=== PATIENT | female | born 1990 | race Asian ===

== ENCOUNTER 2020-01-22 14:22 | Emergency (ER) | payer OTHER ==
--- OUTSIDE RECORDS SUMMARY | 2020-01-22 14:27 | XMS REPORT | Summary of Care ---
:1990 Author Organization [facility] Address [address] [place] [address] Care Team Providers Name Role Phone Pcp, Patient Does Not Have A Primary Care Provider +1-000-00 0-0000 Reason for Visit Reason Comments Initial Visit Encounter Details Date Type Department Care Team Description 05/10/2019 Initial [facility] Precious Hernandez am, MD Supervision of high-risk with history of in first trimester (Primary Dx); Visit Healthcare- [address] [place] [address] ses; Óscar ALEMAN examination or test, positive result; [address] [place] [address], [address] Unsure of LMP (last menstrual period) as reason for ultrasound scan; [address] [place], [place] [phone] Allergies Active Allergy Reactions Severity Noted Date Comments Nsaids (Non-Steroidal Anti-Inflammatory Drug) Swelling 05/10/2019 documented as of this encounter (statuses as of 05/11/2019) Medications Medication Sig Dispensed Refills Start Date End Date Status vit Take by mouth. 0 A ctive calc,iron,folic ( VITAMIN ORAL) PNV [id number] Take 1 30 capsule 8 05/11/2019 Active 1-dss-dha (VITAFOL FE+, TAB-CAP/M2 by WITH DOCUSATE,) 90 mg mouth daily. iron-1 mg -50 mg-200 mg CapIndications: Supervision of high-risk with history of in first trimester documented as of this encounter (statuses as of 05/11/2019) Active Problems Estimated Date of Delivery Comments Yes 12/12/2019 Based on Ultrasound No additional problems on filedocumented as of this encounter (statuses as of 05/11/2019) Social History Tobacco Use Types Packs/Day Years Used Date Never Smoker Smokeless Tobacco: Never Used Alcohol Use Drinks/Week oz/Week Comments Not Currently Estimated Date of Delivery Comments Yes 12/12/2019 Based on Ultrasound Sex Assigned at Date Recorded Not on file Job Start Date Occupation Industry Not on file Not on file Not on file Travel History Travel Start Travel End No recent travel history available. documented as of this encounter Last Filed Vital Signs Vital Sign Reading Time Taken Comments Blood Pressure 115/77 05/10/2019 11:32 AM CDT Pulse 86 05/10/2019 11:32 AM CDT Temperature 36.7 C (98.1 F) 05/10/2019 11:32 AM CDT Respiratory Rate 18 05/10/2019 11:32 AM CDT Oxygen Saturation - - Inhaled Oxygen Concentration - - Weight 57.6 kg (127 lb) 05/10/2019 11:32 AM CDT Height 162.6 cm (5' 4") 05/10/2019 11:32 AM CDT Body Mass Index 21.8 05/10/2019 11:32 AM CDT documented in this encounter Progress Notes Precious Hernandez MD - 05/10/2019 11:00 AM CDT Chief complaint: Chief Complaint Patient presents with Initial Visit HPI Tequila Friedman is a 29 year old female @ 11 5/7 weeks by Patient's last menstrual period was 02/17/2019 (exact date). However, patient has irregular periods and have been skipping a month intermittently. Also had done intermittent fasting and vigorous exercises in March 2019 for weight loss andhad lost 14 lbs. She discontinued that when she found out she is . Denies vaginal bleedingor cramping. Is taking PNV. Never had a pap smear. Histories OB History Para Term AB Living 2 1 SAB TAB Ectopic Multiple Live Births 1 # Outcome Date GA Lbr Tony/2nd Weight Sex Delivery Anes PTL Lv 2 Current 1 TAB 2005 Past Medical History: Diagnosis Date Gout Family History Problem Relation Age of Onset No Significant Medical Problems Mother COPD (chronic obstructive pulmonary disease) Father Hypertension Father Hypertension Maternal Grandmother Hypertension Paternal Grandfather Arthritis NoFHx Asthma NoFHx defects NoFHx Breast Cancer NoFHx Colon Cancer NoFHx Ovarian Cancer NoFHx Uterine Cancer NoFHx Cancer NoFHx Depression NoFHx Diabetes NoFHx Genetic NoFHx High cholesterol NoFHx Heart NoFHx Neurological NoFHx Mental retardation NoFHx Osteoporosis NoFHx Psychiatry NoFHx Other - see comments NoFHx Family Status Relation Name Status Mo Alive Fa Alive MGMo (Not Specified) PGFa (Not Specified) NoFHx (Not Specified) History reviewed. No pertinent surgical history. Social History Socioeconomic History Marital status: Spouse name: Not on file Number of children: Not on file Years of education: Not on file Highest education level: Not on file Occupational History Not on file Social Needs Financial resource strain: Not on file Food insecurity: Worry: Not on file Inability: Not on file Transportation needs: Medical: Not on file Non-medical: Not on file Tobacco Use Smoking status: Never Smoker Smokeless tobacco: Never Used Substance and Sexual Activity Alcohol use: Not Currently Drug use: Never Sexual activity: Yes Partners: Male Lifestyle Physical activity: Days per week: Not on file Minutes per session: Not on file Stress: Not on file Relationships Social connections: Talks on phone: Not on file Gets together: Not on file Attends temple service: Not on file Active member of club or organization: Not on file Attends meetings of clubs or organizations: Not on file Relationship status: Not on file Intimate partner violence: Fear of current or ex partner: Not on file Emotionally abused: Not on file Physically abused: Not on file Forced sexual activity: Not on file Other Topics Concern Not on file Social History Narrative Pt denies physical and sexual abuse. Social History Substance and Sexual Activity Sexual Activity Yes Partners: Male Genetic Screen Autism / Mental Retardation: No Baron Disease: No Congenital Heart Defect: No Cystic Fibrosis: No Down Syndrome: (!) Yes(nephew) Familial Dysautonomia: No Hemophilia or other Blood Disorders: No [place] Chorea: No Maternal Metabolic Disorder--specify (eg. Type 1 Diabetes, PKU): No Muscular Dystrophy: No Neural Tube Defect: No Recurrent Loss or a Stillbirth: No Sickle Cell Disease or Trait: No Bhavesh Sachs: No Teratological Substances (specify type & strength/dose) since LMP: No Thalassemia: No Other Inherited Genetic or Chromosomal Disorder (specify): No Labs No new labs Radiology No new radiology. Allergies Tequila is allergic to nsaids (non-steroidal anti-inflammatory drug). Medications Tequila has a current medication list which includes the following prescription(s): vit calc,iron,folic. Review of Systems Constitutional: Negative for chills, fatigue and fever. HENT: Negative for congestion, rhinorrhea, sneezing and sore throat. Respiratory: Negative for cough, chest tightness, shortness of breath and wheezing. Breasts: Negative for discharge, mass, pain and unequal size. Cardiovascular: Negative for chest pain and palpitations. Gastrointestinal: Negative for abdominal distention, abdominal pain, anal bleeding, blood in stool, constipation, diarrhea, nausea and vomiting. Genitourinary: Negative for dysuria, urgency, frequency, vaginal bleeding and vaginal discharge. Musculoskeletal: Negative for gait problem. Skin: Negative for rash. Neurological: Negative for syncope, light-headedness and headaches. Psychiatric/Behavioral: Negative for dysphoric mood, self-injury and suicidal ideas. Hematological: Negative for cold intolerance and heat intolerance. Does not bruise/bleed easily. Endocrine: Negative for cold intolerance and heat intolerance. BP 115/77 (BP Location: Left arm, Patient Position: Sitting, BP CUFF SIZE: Adult Medium) | Pulse 86 | Temp 36.7 C (98.1 F) (Oral) | Resp 18 | Ht 5' 4" (1.626 m) | Wt 127 lb (57.6 kg) | LMP 02/17/2019 (Exact Date) | BMI 21.80 kg/m Pregravid BMI: 21.8 Physical Exam Vitals reviewed. Constitutional: She is oriented to person, place, and time. Her body habitus is normal. Neck: No mass. No thyromegaly palpated. Cardiovascular: Regular rate and rhythm. Pulmonary/Chest: Breath sounds clear to auscultation. Normal inspiratory effort. Abdominal: Abdomen is soft. No tenderness present. No hernia palpated or inspected. Neuro/Psychiatric: She has a normal mood and affect. She is oriented to person, place, and time. Skin: Skin normal. No rash present. Lymphadenopathy: No axillary adenopathy present. No inguinal adenopathy present. Breast: Right breast exhibits no mass, no nipple discharge and no tenderness. Left breast exhibits no mass, no nipple discharge and no tenderness. Breasts are symmetrical. External genitalia: Normal external genitalia appropriate for age. Normal hair distribution. No labial lesion. Urethral meatus: Normal urethral meatus Urethra: Normal urethra. Bladder: Normal bladder Vagina:Normal vagina. Cervix: Normal cervix. No lesion. No tenderness and no discharge present. Uterus: Uterus is normal size (8-10 weeks size) and non-tender. Adnexa: Right adnexa without tenderness or mass. Left adnexa without tenderness or mass. Anus/perineum: Normal perineum and normal anus. Assessment/Plan See OB Summary Return to clinic in 4 weeks. Reviewed patient instructions and provided printed copy. Activity restrictions: As tolerated at 9w2d This visit did not involve counseling and coordination that comprised more than 50% of the visit time. Precious Hernandez MD 05/11/2019 3:29 AM documented in this encounter Plan of Treatment Date Type Specialty Care Team Description 05/16/2019 Nurse Visit Obstetrics & Nurse, [facility] Women's Gynecology Health 06/07/2019 Routine Obstetrics & Precious Hernandez MD Visit Gynecology [address] [place] [address] DR. Crockett [place] [address] [phone] Name Type Priority Associated Diagnoses Date/Ti me GC & CHLAMYDIA LAB Routine Supervision of high-risk 0 05/10/2019 12:22 PM CDT AMPLIFIED ASSAY with history of in first trimester HIGH RISK HPV-THIN PREP LAB Routine Supervision of hi gh-risk 05/10/2019 12:22 PM CDT with history of in first trimester LAB ONLY PAP LAB Routine Supervision of high-risk 12/2018 12:22 PM CDT SMEAR-LIQUID BASED with history of in first trimester Name Type Priority Associated Diagnoses Order S chedule ADC OR SALLY ONLY - LAB Routine Supervision of high -risk Expected: 05/10/2019, RPR with history of Ex flor: 08/09/2019 in first trimester ADC, CLC OR LCC ONLY - LAB Routine Supervision of hig h-risk Expected: 05/10/2019, HIV TYPE 1 AND 2 with history o f Expires: 08/09/2019 ANTIBODY SCREEN WITH P24 in firs t trimester HCV ANTIBODY LAB Routine Supervision of high-risk Exp ected: 05/10/2019, with history of Ex flor: 08/09/2019 in first trimester HEPATITIS B SURFACE LAB Routine Supervision of high-r isk Expected: 05/10/2019, ANTIGEN with history of Ex flor: 08/09/2019 in first trimester CBC WITH DIFF LAB Routine Supervision of high-risk Ex pected: 05/10/2019, with history of Ex flor: 08/09/2019 in first trimester GLUCOSE 1 HOUR POST LAB Routine Supervision of high-r isk Expected: 05/10/2019, PRANDIAL with history of Ex flor: 08/09/2019 in first trimester WORKUP, BLOOD LAB Routine Supervision of hig h-risk Expected: 05/10/2019, BANK with history of Ex flor: 08/09/2019 in first trimester RUBELLA SCREEN IGG LAB [facility]ine [facility] Expected: 05/10/2019, with history of Ex flor: 08/09/2019 in first trimester VZV ANTIBODY SCREEN LAB Routine Supervision of high-r isk Expected: 05/10/2019, with history of Ex flor: 08/09/2019 in first trimester URINE CULTURE LAB Routine Supervision of high-risk Ex pected: 05/10/2019, with history of Ex flor: 08/09/2019 in first trimester Health Maintenance Due Date Last Done Comments VARICELLA VACCINES (1 of 2 - 13+ 02/10/2001 2-dose series) DTaP,Tdap,and Td Vaccines (1 - 02/10/2007 Tdap) PAP SMEAR 02/10/2009 INFLUENZA VACCINE (#1) 2019 PNEUMOCOCCAL 0-64 YEARS COMBINED Aged Out No longer eligible based on SERIES patient's age to complete this topic documented as of this encounter Procedures Procedure Name Priority Date/Time Associated Diagnosis Comme nts <14 WEEKS US Routine 05/10/2019 5:28 Supervision of Results f or this LIMITED PM CDT high-risk pro cedure are in with history of the results in first section. trimester Unsure of LMP (last menstrual period) as reason for ultrasound scan PAP SMEAR-LIQUID Routine 05/10/2019 12:22 Supervision of BASED-CP PM CDT high-risk with history of in first trimester ADC / LCC - DRUG Routine 05/10/2019 12:22 Supervision of Resul ts for this SCREEN TRIAGE PM CDT high-risk procedu re are in with history of the results in first section. trimester POCT URINALYSIS W/O Routine 05/10/2019 Results for this SPECIFIC GRAVITY examination or test, pro cedure are in positive result the results section. POCT TEST Routine 05/10/2019 Missed menses Results for this procedure are i n the results section. documented in this encounter Results <14 WEEKS US LIMITED (05/10/2019 5:28 PM CDT) Specimen Narrative Performed At This result has an attachment that is no t available. Limited USG for dating as unsure LMP:Single live IUP measured 9 1/ PACS weeks, not consistent with LMP.Will date by this u ltrasound unless clinically indicated otherwise Precious Hernandez MD05/11/20193:23 AM Performing Organization Address City/[facility]/Zipcode Phone Number PACS PAP Smear-Liquid Based (05/10/2019 12:22 PM CDT) Specimen Swab - CERVIX Performing Organization Address City/[facility]/Zipcode Phone Number [facility] CLIA: [id number], [address] [place], [place] [address] [facility] ADC / LCC - DRUG SCREEN TRIAGE (05/10/2019 12:22 PM CDT) Pathologist Sig nature BENZO U Negative Negative [facility] CHUY U Negative Negative [facility] AMPHET Negative Negative [facility] THC Negative Negative [facility] METHADONE Negative Negative [facility] Meth U Negative Negative [facility] OPIATES Negative Negative [facility] Cocaine Metabolite Negative Negative [facility] PROPOXY Negative Negative [facility] Tric U Negative Negative [facility] PCP Negative Negative [facility] OXYCOD Negative Negative [facility] Specimen Urine - URINE, CLEAN CATCH Narrative Performed At Urine Drug Cutoff Ranges [facility] Benzodiazepines: 150 ng/mL Barbiturates: 200 ng/mL Amphetamine: 500 ng/mL Cannabinoids: 50ng/mL Methadone: 200 ng/mL Methamphetamine: 500 ng/mL Opiates: 100 ng/mL or 2000 ng/mL Cocaine: 150 ng/mL Propoxyphene:300 ng/mL Tricyclics:300 ng/mL Oxycodone: 100 ng/mL PCP: 25 ng/mL The results are to be used only for medical (i.e., treatment) purposes. Unconfirmed screening results must not be used for non-medical purposes (e.g., employment testing, legal testing). Performing Organization Address City/State/Zipcode Phone Number [facility] CLIA: [id number], [address] [place], [place] [address] POCT TEST (05/10/2019) Pathologist Sig nature POCT PREG Positive On board controls acceptable Yes with C Line POCT PREG LOT # POCT PREG TEST DATE Specimen Urine - URINE, CLEAN CATCH POCT URINALYSIS W/O SPECIFIC GRAVITY (05/10/2019) Pathologist Sig nature POCT PH U N/A 5 - 8 mg/dl POCT U LEUK EST N/A Negative - Negative POCT U NIT N/A Negative - Negative POCT U PROT Negative Negative - Negative POCT U GLU Negative Negative - Negative POCT U KETONE N/A Negative - Negative POCT U BLD N/A Negative - Negative Specimen Urine - URINE, CLEAN CATCH documented in this encounter Visit Diagnoses Diagnosis Supervision of high-risk with history of in first trimester - Primary Missed menses Absence of menstruation examination or test, positive result Unsure of LMP (last menstrual period) as reason for ultrasound scan Encounter for routine screening for malf ormation using ultrasonics Family history of Down syndrome Family history of congenital anomalies documented in this encounter Guarantor Name Account Type Relation to Date of Phone Bill ing Patient Address Tequila Friedman Personal/Family Self [address] (Home) [address] [place] [address] documented as of this encounter
--- OUTSIDE RECORDS SUMMARY | 2020-01-22 14:27 | XMS REPORT | Summary of Care ---
:1990 Author Organization [facility] [email or web address] [facility] Address [address] [place] [id number] Care Team Providers Name Role Phone Pcp, Patient Does Not Have A Primary Care Provider +1-000-00 0-0000 Reason for Visit Reason Comments Rx Concern/Question Encounter Details Date Type Department Care Team Description 05/11/2019 Telephone [facility] Women[facility] Precious Hernandez MD Rx Concern/Question [address] [place], [place] [address] [phone] Allergies Active Allergy Reactions Severity Noted Date Comments Nsaids (Non-Steroidal Anti-Inflammatory Drug) Swelling 05/10/2019 documented as of this encounter (statuses as of 05/11/2019) Medications Medication Sig Dispensed Refills Start Date End Date Status vit Take by mouth. 0 A ctive calc,iron,folic ( VITAMIN ORAL) PNV [id number] Take 1 30 capsule 8 05/11/2019 Active [...] of this encounter Last Filed Vital Signs Not on filedocumented in this encounter Plan of Treatment Date Type Specialty Care Team Description 05/16/2019 Nurse Visit Obstetrics & Nurse, [facility] Women[facility] Gynecology Health 06/07/2019 Routine Obstetrics & Hernandez, Precious Austin MD Visit Gynecology [address] [place] [address] DR. Crockett [place], [place] [address] [phone] Health Maintenance Due Date Last Done Comments VARICELLA VACCINES (1 of 2 - 13+ 02/10/2001 2-dose series) DTaP,Tdap,and Td Vaccines (1 - 02/10/2007 Tdap) PAP SMEAR 02/10/2009 INFLUENZA VACCINE (#1) 2019 PNEUMOCOCCAL 0-64 YEARS COMBINED Aged Out No longer eligible based on SERIES patient's age to complete this topic documented as of this encounter Results Not on filedocumented in this encounter Insurance Payer Benefit Plan / Group Subscriber ID Effective Dates Phone Address Type TRACIE HODGES II [id number] 2018-Present [place]/PPO/POS documented as of this encounter
--- OUTSIDE RECORDS SUMMARY | 2020-01-22 14:27 | XMS REPORT | Summary of Care ---
:1990 Author Organization [facility] [employer] [facility] Address [address] [place] [address] Care Team Providers Name Role Phone Pcp, Patient Does Not Have A Primary Care Provider +1-000-00 0-0000 Reason for Visit Reason Comments Orders Encounter Details Date Type Department Care Team Description 05/11/2019 Telephone [facility] Women's HernandezPrecious MD Orders Healthcare- [address], [address] [facility] [address] [place] [address] [place] [address] [phone] Allergies Active Allergy Reactions Severity Noted Date Comments Nsaids (Non-Steroidal Anti-Inflammatory Drug) Swelling 05/10/2019 documented as of this encounter (statuses as of 05/11/2019) Medications Medication Sig Dispensed Refills Start Date End Date Status vit Take by mouth. 0 A ctive calc,iron,folic ( VITAMIN ORAL) PNV [id number] Take 1 30 capsule 8 05/11/2019 Active [...] & Hernandez, Precious Austin MD Visit Gynecology [address] [place] [address] DR. Crockett [place] [id number] 15 [phone] Health Maintenance Due Date Last Done Comments [...] Dates Phone Address Type TRACIE HODGES II [id number] 2018-Present H [place]/PPO/POS documented as of this encounter
--- OUTSIDE RECORDS SUMMARY | 2020-01-22 14:27 | XMS REPORT | Clinical Summary ---
:1990 Author Organization [facility] Address [address] [place] [address] Care Team Providers Name Role Phone Angelica Melissa Primary Care Provider Allergies Active Allergy Reactions Severity Noted Date Comments Ibuprofen Shortness Of Breath High 08/07/2019 Medications Medication Sig Dispensed Refills Start Date End Date Status vitamin Take by mouth. 0 Active w/wgoqnwn-qbua-qnpev e ( PLUS) 27 mg iron- 1 mg Tab calcium carbonate Take 1 tablet by 0 Active (TUMS) 500 mg mouth daily. chewable tablet HYDROcodone-acetamin Take 1 tablet by 30 tablet 0 12/02/2019 0 12/12/2019 ophen (NORCO 5-325) mouth every 4 5-325 mg per tablet (four) hours as needed for up to 10 days. Max Daily Amount: 6 tablets traMADoL (ULTRAM) 50 Take 1 tablet (50 15 tablet 0 12/02/2019 12/12/2019 mg tablet mg total) by mouth every 4 (four) hours as needed for up to 10 days. Max Daily Amount: 300 mg senna-docusate Take 1 tablet by 14 tablet 0 12/02/2019 020 (SENOKOT S) 8.6-50 mouth daily for mg per tablet 14 days. Active Problems Problem Noted Date Premature rupture of membranes with onset of labor wit hin 24 hours of 12/01/2019 rupture Chorioamnionitis in third trimester 12/01/2019 11/30/2019 Encounters Date Type Specialty Care Team Description 01/10/2020 Obstetrics and LASHANDA Gunn (spontane ous Gynecology Tong [place] vaginal deli very) (Primary Dx) 12/01/2019 Travel 11/30/2019 Anesthesia Event Obstetrics Ashish Santana MD 11/30/2019 - Hospital Encounter Obstetrics LASHANDA Gunn (spon taneous 12/03/2019 Tong [place] vaginal deli very) (Primary Dx) 11/28/2019 Routine Obstetrics and Luis A, GA: 38w0d Gynecology Tong [place] MD 11/28/2019 Travel 11/22/2019 Routine Obstetrics and Luis A, GA: 37w1d Gynecology Tong [place] MD 11/21/2019 Travel 11/03/2019 Routine Obstetrics and Luis A, GA: 34w3d Gynecology Tong [place] MD 10/20/2019 Routine Obstetrics and Luis A, GA: 32w3d Gynecology Tong [place] MD 10/06/2019 Routine Obstetrics and Luis A, GA: 30w3d Gynecology Tong [place] MD 09/08/2019 Routine Obstetrics and Luis A, GA: 26w3d Gynecology Tong [place] MD 08/07/2019 Initial Obstetrics and Luis A, GA: 21w6d Gynecology Tong [place] MD 08/07/2019 Abstract Obstetrics and Ramos, Gynecology AAMIR Oliva after 01/21/2019 Immunizations Name Dates Previously Given Next Due Tdap 10/06/2019 Family History Medical History Relation Name Comments Hypertension Father Relation Name Status Comments Father Social History Tobacco Use Types Packs/Day Years Used Date Never Smoker Smokeless Tobacco: Never Used Alcohol Use Drinks/Week oz/Week Comments No Alcohol Habits Answer Date Recorded How often do you have a drink containing alcohol? Never 08/07/2019 How many drinks containing alcohol do you have on a typical Not asked day when you are drinking? How often do you have six or more drinks on one occasion? No t asked Sex Assigned at Date Recorded Not on file Job Start Date Occupation Industry Not on file Not on file Not on file Travel History Travel Start Travel End No recent travel history available. Last Filed Vital Signs Vital Sign Reading Time Taken Blood Pressure 125/85 01/10/2020 10:31 AM CDT Pulse 90 01/10/2020 10:31 AM CDT Temperature 36.7 C (98 F) 01/10/2020 10:31 AM CDT Respiratory Rate 18 12/03/2019 8:45 AM CDT Oxygen Saturation 98% 12/01/2019 9:47 AM CDT Inhaled Oxygen Concentration - - Weight 65 kg (143 lb 3.2 oz) 01/10/2020 10:31 A M CDT Height 162.6 cm (5' 4") 01/10/2020 10:31 AM CDT Body Mass Index 24.58 01/10/2020 10:31 AM CDT Plan of Treatment Health Maintenance Due Date Last Done Comments INFLUENZA VACCINE (Season Ended) 2020 CERVICAL CANCER SCREENING HPV AND PAP 05/10/2024 05/10/2019 , 05/10/2019 SMEAR (Age 30-65) Procedures Procedure Name Priority Date/Time Associated Comments Diagnosis CBC W/PLT COUNT & AUTO Routine 12/02/2019 3:22 R esults for this DIFFERENTIAL AM CDT procedure are i n the results section. CBC W/PLT COUNT & AUTO Routine 12/02/2019 3:22 R esults for this DIFFERENTIAL AM CDT procedure are i n the results section. TRANSFUSION SERVICE 12/01/2019 5:53 REPORT - SCAN PM CDT TISSUE EXAM AP Routine 12/01/2019 6:51 Results for this AM CDT procedure are i n the results section. BLOOD GAS, CORD VENOUS Routine 12/01/2019 6:22 R esults for this AM CDT procedure are i n the results section. BLOOD GAS, CORD Routine 12/01/2019 6:22 Results for this ARTERIAL AM CDT procedure are i n the results section. ABORH, MANUAL Routine 11/30/2019 11:11 Results fo r this PM CDT procedure are i n the results section. ANESTHESIA EPIDURAL Routine 11/30/2019 10:51 Resu lts for this BLOCK PM CDT procedure are i n the results section. CBC W/PLT COUNT & AUTO Routine 11/30/2019 9:16 R esults for this DIFFERENTIAL PM CDT procedure are i n the results section. TYPE AND SCREEN, Routine 11/30/2019 9:16 Results for this AUTOMATED PM CDT procedure are i n the results section. HIV-1 ANTIGEN WITH Routine 11/30/2019 9:16 Resul ts for this HIV-1/2 ANTIBODY PM CDT procedure a re in the results section. RPR Routine 11/30/2019 9:16 Results for this PM CDT procedure are i n the results section. HEPATITIS B SURFACE Routine 11/30/2019 9:16 Resu lts for this ANTIGEN PM CDT procedure are i n the results section. CBC W/PLT COUNT & AUTO Routine 11/30/2019 9:16 R esults for this DIFFERENTIAL PM CDT procedure are i n the results section. US BIOPHYSICAL Routine 11/29/2019 11:12 Uterine size-ad e Results for this PROFILE WO NON STRESS AM CDT discrepancy in proc edure are in TESTING third trimester the results section. POCT AMB URINE Routine 11/28/2019 2:35 Third trimester Result s for this DIPSTICK PM CDT procedure are i n the results section. US OB FOLLOW UP Routine 11/22/2019 4:12 Uterine size-date Res ults for this TRANSABDOMINAL PM CDT discrepancy in procedure a re in APPROACH third trimester the results section. STREP GP B CULT/DNA Routine 11/22/2019 11:51 Resu lts for this PROBE AM CDT procedure are i n the results section. POCT AMB URINE Routine 11/22/2019 11:22 Third trimester Result s for this DIPSTICK AM CDT procedure are i n the results section. POCT AMB URINE Routine 11/03/2019 10:38 Third trimester Result s for this DIPSTICK AM ACCESS REGISTRAR procedure are i n the results section. POCT AMB URINE Routine 10/20/2019 10:08 Third trimester Result s for this DIPSTICK AM ACCESS REGISTRAR procedure are i n the results section. POCT AMB URINE Routine 10/06/2019 10:33 Second trimester Resul ts for this DIPSTICK AM ACCESS REGISTRAR procedure are i n the results section. RPR (DX) W/REFL TITER Routine 10/06/2019 9:49 Second trimeste r Results for this AND CONFIRMATORY AM ACCESS REGISTRAR procedure a re in TESTING the results section. HIV-1 ANTIGEN WITH Routine 10/06/2019 9:49 Second trimester R esults for this HIV-1/2 ANTIBODY AM ACCESS REGISTRAR procedure a re in the results section. CBC W/PLT COUNT & AUTO Routine 10/06/2019 9:49 Second trimest er Results for this DIFFERENTIAL AM ACCESS REGISTRAR procedure are i n the results section. TDAP VACCINE GREATER Routine 10/06/2019 9:45 Need for THAN OR EQUAL TO 7YO AM ACCESS REGISTRAR diphtheria-tetanus- IM pertussis (Tdap) vaccine US OB FOLLOW UP Routine 09/08/2019 12:36 Second trimester Resu lts for this TRANSABDOMINAL PM ACCESS REGISTRAR procedure are in APPROACH the results section. GEST DIABETES 1-HR AP Routine 09/08/2019 9:11 Second trimester R esults for this SCREEN AM ACCESS REGISTRAR procedure are i n the results section. POCT AMB URINE Routine 09/08/2019 8:57 Second trimester Resul ts for this DIPSTICK AM ACCESS REGISTRAR procedure are i n the results section. US OB FOLLOW UP Routine 08/08/2019 1:05 Amenorrhea Results for this TRANSABDOMINAL PM ACCESS REGISTRAR procedure are in APPROACH the results section. URINE CULTURE, ROUTINE AP Routine 08/07/2019 4:33 Second trimest er Results for this PM ACCESS REGISTRAR procedure are i n the results section. URINALYSIS WITH Routine 08/07/2019 4:33 Results for this MICROSCOPIC IF PM ACCESS REGISTRAR procedure are in INDICATED the results section. POCT AMB URINE Routine 08/07/2019 12:05 Second trimester Resul ts for this DIPSTICK PM ACCESS REGISTRAR procedure are i n the results section. GESTATIONAL GLUCOSE AP Routine 05/16/2019 Results for this VIRGILIO procedure are i n the results section. ABORH, MANUAL Routine 05/16/2019 Results for th is procedure are i n the results section. HIV-1/O/2 Routine 05/16/2019 Results for thi s procedure are i n the results section. RUBELLA ANTIBODY, IGG Routine 05/16/2019 Result s for this procedure are i n the results section. RPR Routine 05/16/2019 Results for thi s procedure are i n the results section. HEPATITIS B SURFACE Routine 05/16/2019 Results for this ANTIGEN procedure are i n the results section. CBC (HEMOGRAM ONLY) Routine 05/16/2019 Results for this procedure are i n the results section. RH TYPE Routine 05/16/2019 Results for thi s procedure are i n the results section. PAP IG CT-NG RFX HPV AP Routine 05/10/2019 Results for this ASCU procedure are i n the results section. APT-DARSHAN, AMNIOTIC Routine 05/10/2019 Results for this procedure are i n the results section. after 01/21/2019 Results CBC with platelet count + automated diff (12/02/2019 3:22 AM CDT)Only the most recent of2 resultswithin the time period is included. WBC 11.1 (H) 4.0 - 10.0 K/L [facility] RBC 4.13 4.00 - 5.00 M/L [facility] Hemoglobin 9.5 (L) 12.0 - 15.5 GM/DL [facility] Hematocrit 29.9 (L) 36.0 - 46.0 % [facility] MCV 72.4 (L) 82.0 - 99.0 fL [facility] MCH 23.0 (L) 27.0 - 33.0 pg [facility] MCHC 31.8 (L) 32.0 - 36.0 GM/DL [facility] RDW 17.2 (H) 12.0 - 15.0 % [facility] Platelets 172 150 - 430 K/CU MM [facility] MPV 10.5 6.0 - 11.5 fL [facility] nRBC 0 0 - 0 /100 WBC [facility] % Neutros 82 % [facility] % Lymphs 11 % [facility] % Monos 7 % [facility] % Eos 0 % [facility] % Baso 0 % [facility] # Neutros 9.06 (H) 1.80 - 8.00 K/L [facility] # Lymphs 1.20 (L) 1.48 - 4.50 K/L [facility] # Monos 0.78 0.00 - 1.30 K/L [facility] # Eos 0.03 0.00 - 0.50 K/L [facility] # Baso 0.01 0.00 - 0.20 K/L [facility] Immature Granulocytes-Relative 0 0 - 0 % [facility] Specimen Blood Performing Organization Address City/State/Zipcode Phone Number [facility] [address] [place], [place] [address] TRANSFUSION SERVICE REPORT - SCAN (12/01/2019 5:53 PM CDT) Narrative Performed At This result has an attachment that is no t available. Tissue Exam (12/01/2019 6:51 AM CDT) Case Report Surgical Pathology Report Case: [id number] [facility] Authorizing Provider:Her Tong mosquedautreau, Collected: 12/01/2019 06:51 AM Ordering Location: [facility] Received:12/01/2019 07:47 AM [facility] Pathologist: Tequila Tran MD Specimen:Placenta DIAGNOSIS PLACENTA, DELIVERY: [facility] UMBILICAL CORD THREE-VESSEL CORD WITH A MARGINAL INSERTION MEMBRANES PIGMENT-LADEN MACROPHAGES, CONSISTENT WITH ME CONIUM DEPOSITION PLACENTAL DISC OBSERVED WEIGHT OF 512 GM FOCALLY INCREASED SYNCYTIAL KNOTS Signing Pathologist Direct Phone Line: [phone] CPT Code(s) MG/ew [facility] [address] CLINICAL HISTORY Maternal data: Age 29, race [facility] . G1, P0, AB0, weeks 39. Maternal conditions: Suspected maternal infection/fever and chorioamnionitis SPECIMEN SOURCE Placenta [facility] GROSS DESCRIPTION The specimen is received in fixative and is labeled with the patient's name, medical record number and designated as "placenta", is a 512 gm, 17.0 x 17.0 x 4.0 cm (after removal of umbilical cord and fe [facility] diego membranes) placenta. The membranes are pink-marley to green with meconium present on the surface. Insertion is marginal. The membranes are semi- translucent. The umbilical cord is white-marley to gre en and is 8.0 cm in length a nd 1.5 cm in diameter. Insertion is marginal. The cut surface reveals a trivascular cord. The surface is blue-green with slightly dilated vasculature. There is a minima l amount of subchorionic fib rin deposition. The maternal surface is red-brown and spongy with normal cotyledon formation. The cut surface does not reveal any discrete lesions. Section code: A1, umbilical cord and membrane roll; A2-A4, solar sales representative and assessor sections of placental disc. MG/ew MICROSCOPIC DESCRIPTION Performed [facility] Gross assessment was [facility] performed at [facility], Department of Pathology, [address] [place] [id number], Technical component was [facility] performed at [place], Department of Pathology, [address] [place] [address] [place] [address], Professional component [facility] [place] [facility] was performed at [facility], Department of Pathology, [address] [facility], [place] [address], Specimen Tissue Narrative Performed At This result has an attachment that is no t available. Performing Organization Address City/State/Zipcode Phone Number [facility] [address] [facility], [place] [address] Blood gas, cord venous (12/01/2019 6:22 AM CDT) pH, Cord Venous 7.29 (L) 7.32 - 7.42 [facility] pCO2, Cord Venous 44 41 - 51 mmHg [facility] pO2, Cord Venous 27 25 - 40 mmHg [facility] HCO3, Cord Venous 21 21 - 29 mmol/L [facility] Base Excess, Cord Venous -5.9 (L) -2.0 - 3.0 mmol/L [facility] Patient Temperature 37.0 C [facility] Specimen Blood Performing Organization Address City/[facility] Phone [facility] [address] [facility], [place] [address] Blood gas, cord arterial (12/01/2019 6:22 AM CDT) pH, Cord Arterial 7.26 7.15 - 7.38 [facility] pCO2, Cord Arterial 45 32 - 68 mmHg [facility] pO2, Cord Arterial 32 (H) 16 - 20 mmHg [facility] HCO3, Cord Arterial 20 15 - 27 mmol/L [facility] Base Excess, Cord Arterial -7.4 -8.1 - 0.9 mmol/L [facility] Patient Temperature 37.0 C [facility] Specimen Blood, Arterial Performing Organization Address City/State/Zipcode Phone Number [facility] [address] [facility], [place] [address] ABORH, manual (11/30/2019 11:11 PM CDT)Only the most recent of2 resultswithin the time period is included. ABO Grouping B [facility] Rh Factor POS [facility] Specimen Blood Performing Organization Address City/State/Zipcode Phone Number [facility] [address] [place] [address] [facility] ANESTHESIA EPIDURAL BLOCK (11/30/2019 10:51 PM CDT) Narrative Performed At Ashish Santana MD 11/30/19 10:52 PM Epidural Block Patient location during procedure: OB Start time: 11/30/2019 10:40 PM End time: 11/30/2019 10:49 PM Procedure Indication: primary anesthetic Staffing Anesthesiologist: Ashish Santana MD Performed: personally Preanesthetic Checklist Completed: patient identified, pre-op ev aluation, timeout performed, IV checked, risks and benefits discussed, m onitors and equipment checked, anesthesia consent given, prep site dry prior to draping and maximum sterile barriers were used: cap, mask, sterile gown, s terile gloves, and large sterile sheet Prep Prep: Betadine Procedures: sterile gloves, surgical mask, surgical mohamud t, sterile technique and prep and sterile drape applied Epidural Patient position: sitting Patient monitoring: EKG, HR, SpO2 and BP Approach: midline landmark technique and landmark techniqu Jose David pictures available Location: lumbar Level:4-5 Injection technique: RAJNI saline Epidural Needle Needle type: Tuohy Needle gauge: 17 G Insertion Depth: 7 cm Catheter Type: Epidural Assessment Sensory Region: thoracic Sensory level: 10 Test dose result: negative Amount: 3 mL, lidocaine 1.5% with epinep hrine 1:200,000injection not painful, no injection resistance, no paresthesia, no c erebrospinal fluid, no intravascular injection, no epidural blood return and no intrathecal medication injection patient tolerated the procedure well and patient had no immediate complications Procedure Note Ashish Santana MD - 11/30/2019 10 :51 PM CDT Epidural Block Patient location during procedure: OB Start time: 11/30/2019 10:40 PM End time: 11/30/2019 10:49 PM Procedure Indication: primary anesthetic Staffing Anesthesiologist: Ashish Santana MD Performed: personally Preanesthetic Checklist Completed: patient identified, pre-op ev aluation, timeout performed, IV checked, risks and benefits discussed, monitors and equipment checked, anesthesia consent given, prep site dry prior to draping and maximum sterile barriers were used: cap, mask, s terile gown, sterile gloves, and large sterile sheet Prep Prep: Betadine Procedures: sterile gloves, surgical mas k, surgical hat, sterile technique and prep and sterile drape applied Epidural Patient position: sitting Patient monitoring: EKG, HR, SpO2 and BP Approach: midline landmark technique and landmark techniqu Jose David pictures available Location: lumbar Level: 4-5 Injection technique: RAJNI saline Epidural Needle Needle type: Tuohy Needle gauge: 17 G Insertion Depth: 7 cm Catheter Type: Epidural Assessment Sensory Region: thoracic Sensory level: 10 Test dose result: negative Amount: 3 mL, lidocaine 1.5% with epinep hrine 1:200,000injection not painful, no injection resistance, no paresthesia, no cerebrospinal fluid, no intravascular injection, no epidural blood return and no intrathecal medication injection patient tolerated the procedure well and patient had no immediate complications Type and screen, automated (11/30/2019 9:16 PM CDT) ABO/RH AUTOMATED (BEAKER) B POSITIVE [facility] Ab Scrn NEGATIVE [facility] Specimen Blood Performing Organization Address City/[facility] Phone Number [address] [phone] [facility] HIV-1 Antigen with HIV-1/2 Antibody (11/30/2019 9:16 PM CDT)Only the most recent of2 resultswithin the time period is included. HIV-1 Antigen with HIV 1&2 Antibody Nonreactive Nonreactive [facility] Specimen Blood Narrative Performed At Concession Supervisor ID - JBERN [facility] Performing Organization Address City/[facility] Phone Number [facility] [address] [place] [phone] RPR (11/30/2019 9:16 PM CDT)Only the most recent of2 resultswithin the time period is included. RPR Nonreactive Nonreactive [facility] Specimen Blood Performing Organization Address City/[facility]/Zipcode Phone Number [facility] [address] [place] [phone] Hepatitis B surface antigen (11/30/2019 9:16 PM CDT)Only the most recent of2 resultswithin the time period is included. HBsAg Screen Nonreactive Nonreactive [facility] Specimen Blood Narrative Performed At [place] Supervisor ID - JBERN [facility] Performing Organization Address City/State/Zipcode Phone Number [facility] [address] [facility] [place] [address] Ultrasound biophysical profile without non stress testing (11/29/2019 11:12 AM CDT) Narrative [facility] 1990 BIOPHYSICAL ULTRASOUND REPORT Date performed: 11/28/19 LMP:03/07/19 EULALIO: 12/12/19 GA: 38w0d Position: cephalic BEATRICE:13.1 cm FHR: 148 bpm breathin tone:2 movement:2 BEATRICE:2 BPP total: 04/13 Additional comments: POCT OB Urine Dipstick (11/28/2019 2:35 PM CDT)Only the most recent of7 results within the time period is included. Color, UA Yellow Light Yellow, Yellow Clarity, UA Clear Clear Glucose Urine, POC Negative Negative Bilirubin Urine, POC Negative Negative Ketones Urine, POC Negative Negative Specific [place] Urine, POC 1.025 SG Ratio 1.005 SG Ratio, 1.01 0 SG Ratio, 1.015 SG Ratio, 1.020 SG Ratio, 1.025 SG Ratio, 1.030 SG Ratio Blood Urine, POC Trace (A) Negative pH Urine, POC 7.5 pH units 5.0 pH units, 5.5 pH units, 6.0 pH units, 6.5 pH units, 7.0 pH units, 7.5 pH units, 8.0 pH units Protein Urine, POC Negative Negative Urobilinogen Urine, POC 0.2 mg/dL 0.2 mg/dL, 1 mg/dL Leukocyte Esterase Urine, POC Trace (A) Negative Nitrite Urine, POC Negative Negative Specimen Ultrasound OB follow-up transabdominal approach (11/22/2019 4:12 PM CDT)Only the most recent of3 resultswithin the time period is included. Biparietal Diameter Abdominal Circumference Femoral Diameter Head Circumference HC/AC Estimated Weight Narrative [facility]formed [facility] 1990 11/22/2019 BEATRICE / EFW ULTRASOUND REPORT Date performed:11/22/2019 LMP:03/07/2019 GA:37 wks1d EULALIO:12/12/2019 position: Vertex FHT:130 bpm BEATRICE:19.2 cm BPD: 97.2mm = 39 w5d HC: 340.8mm = 39 w2d AC: 342.7mm = 38 w1d FL: 69.3mm = 35 w4d weight:3354 grams U/S GA: 38w3d EULALIO:12/03/2019 STREP GP B CULT/DNA PROBE (11/22/2019 11:51 AM CDT) Strep Gp B JHONY Negative Negative [facility] 1 Comment: Centers for Disease Control and Prevention (CDC) and [place] Gynecologists (ACOG) guidel maria victoria for prevention of group B streptococcal (GBS) disease sp ecify co-collection of a vaginal and rectal swab specimen to maximize s ensitivity of GBS detection. Per the CDC and ACOG, swabbing both t he lower vagina and rectum substantially increases the yield of dete ction compared with sampling the vagina alone. Penicillin G, ampicillin, or cefazolin are indic ated for intrapartum prophylaxis of GBS colonization. Refle x susceptibility testing should be performed prior to use of clin damycin only on GBS isolates from penicillin-allergic women who are considered a high risk for anaphylaxis. Treatment with vancomycin witho ut additional testing is warranted if resistance to clindamycin is not ed. Specimen Narrative Performed At Performed at:[address] [place] [address] [facility] [address] [place] [address] Oil Spreader Operator: Roger Moctezuma MD, Phone:[phone] Performing Organization Address [facility] [place] [facility] Phone Number [facility] 1 RPR (DX) W/REFL TITER AND CONFIRMATORY TESTING (10/06/2019 9:49 AM ACCESS REGISTRAR) RPR Non Reactive Non Reacti [facility] 1 Specimen Narrative Performed At Performed at:[facility] [address] [place] [address] Oil Spreader Operator: Roger Moctezuma MD, Phone:[phone] Performing Organization Address [facility] [place] Phone Number [facility] 1 CBC W/ PLT COUNT AUTO DIFFERENTIAL (10/06/2019 9:49 AM ACCESS REGISTRAR) WBC 5.8 3.4 - 10.8 x10E3/uL [facility] 1 RBC 4.86 3.77 - 5.28 x10E6/uL [facility] 1 Hemoglobin 10.5 (L) 11.1 - 15.9 g/dL [facility] 1 Hematocrit 34.2 34.0 - 46.6 % [facility] 1 MCV 70 (L) 79 - 97 fL [facility] 1 MCH 21.6 (L) 26.6 - 33.0 pg [facility] 1 MCHC 30.7 (L) 31.5 - 35.7 g/dL [facility] 1 RDW 15.3 11.7 - 15.4 % [facility] 1 Platelets 241 150 - 450 x10E3/uL [facility] 1 % Neutros 68 Not Estab. % [facility] 1 % Lymphs 22 Not Estab. % [facility] 1 % Monos 9 Not Estab. % [facility] 1 % Eos 1 Not Estab. % [facility] 1 % Baso 0 Not Estab. % [facility] 1 # Neutros 3.9 1.4 - 7.0 x10E3/uL [facility] 1 # Lymphs 1.3 0.7 - 3.1 x10E3/uL [facility] 1 # Monos 0.5 0.1 - 0.9 x10E3/uL [facility] 1 # Eos 0.1 0.0 - 0.4 x10E3/uL [facility] 1 Baso (Absolute) 0.0 0.0 - 0.2 x10E3/uL [facility] 1 % Immature Grans 0 Not Estab. % [facility] 1 # Immature Grans 0.0 0.0 - 0.1 x10E3/uL [facility] 1 Specimen Blood Narrative Performed At Performed at: - [facility] [address] [place] 3143 Oil Spreader Operator: Roger Moctezuma MD, Phone:[phone] Performing Organization Address City/State/Zipcode Phone Number [facility] 1 Tdap vaccine greater than or equal to 7yo IM (10/06/2019 9:45 AM ACCESS REGISTRAR) Narrative Performed At This result has an attachment that is no t available. GEST DIABETES 1-HR SCREEN (09/08/2019 9:11 AM ACCESS REGISTRAR) Gestational Diabetes Screen 129 65 - 139 mg/dL [facility] Comment: According to ADA, a glucose threshold of >139 mg /dL after 50-gram load identifies approximately 80% of women with gestational diabetes mellitus, while the sensitivity is furt her increased to approximately 90% by a threshold of >129 mg/dL. Specimen Blood - Cord Blood Narrative Performed At Performed at: [facility] [address] [place] [address] 2176 Oil Spreader Operator: Roger Moctezuma MD, Phone:[phone] Performing Organization Address [facility] Phone Number [facility] 1 Urinalysis with Microscopic If Indicated (08/07/2019 4:33 PM ACCESS REGISTRAR) Specific [place], UA 1.013 1.005 - 1.03 [facility] 1 pH, UA 6.0 5.0 - 7.5 [facility] 1 Color, UA Yellow Yellow [facility] 1 Appearance Clear Clear [facility] 1 WBC Esterase Negative Negative [facility] 1 Protein, UA Negative Negative/T [facility] 1 Glucose, Urine Negative Negative [facility] 1 Ketones, UA Negative Negative [facility] 1 Blood, UA Negative Negative [facility] 1 Bilirubin, UA Negative Negative [facility] 1 Urobilinogen,Semi-Qn 0.2 0.2 - 1.0 mg/dL [facility] 1 Nitrite, UA Negative Negative [facility] 1 Microscopic Examination CommentComment: Microscopic not [facility] 1 indicated and not performed. Specimen Narrative Performed At [facility]formed at: [facility] [address] [place] [address] 0297 Oil Spreader Operator: Roger Moctezuma MD, Phone:[phone] Performing Organization Address [facility] Phone Number [facility] 1 URINE CULTURE, ROUTINE ([facility] Only) (08/07/2019 4:33 PM ACCESS REGISTRAR) Urine Culture, Routine Final report [facility] 1 Result 1 Comment [facility] 1 Comment: Mixed urogenital teddy 10,000-25,000 colony forming units per mL Specimen Urine Narrative Performed At [facility]formed at: [facility] [address] [place] [address] 8758 Oil Spreader Operator: Roger Moctezuma MD, Phone:[phone] Performing Organization Address City/State/Zipcode Phone Number [facility] 1 RH TYPE (05/16/2019) Rh Factor Positive GESTATIONAL GLUCOSE VIRGILIO (05/16/2019) Glucose - 1 hour 81 Rubella antibody, IgG (05/16/2019) Rubella Antibodies, IgG Positive Specimen Blood CBC (Hemogram only) (05/16/2019) Hemoglobin 11.9 GM/DL Hematocrit 39.9 36.0 - 45.0 % Specimen Blood HIV-1/O/2 (05/16/2019) HIV 2 Ab nonreactive HIV 1 AB nonreactive Specimen Blood PAP IG CT-NG RFX HPV ASCU (05/10/2019) Pap Negative for intraephithelial lesion or malignan cy APT-[place], amniotic (05/10/2019) APT Test Panorama results: normal Gender: Male Specimen Amniotic Fluid after 01/21/2019 Insurance Payer Benefit Plan / Group Subscriber ID Type Phone A ddress [employer] - MGD CARE CIGNA HMO/POS/OPEN ACCESS xxxxxxxxxxx HMO/POS Guarantor Name Account Type Relation to Date of Phone Billing Patient Address Tequila Friedman Personal/Family Self [address] # Vinay Cervantes (Home) [address] [place] [address] Advance Directives For more information, please contact:[address] [phone] Code Status Date Activated Date Inactivated Comments Full Code 11/30/2019 8:49 PM 12/01/2019 6:47 AM This code status was determined by: Patient
--- OUTSIDE RECORDS SUMMARY | 2020-01-22 14:27 | XMS REPORT | Summary of Care ---
:1990 Author Organization [facility] Address [address] [place] [address] Care Team Providers Name Role Phone Pcp, Patient Does Not Have A Primary Care Provider +[id number] 0-0000 Reason for Visit Reason Comments Orders Encounter Details Date Type Department Care Team Description 05/11/2019 Telephone [facility] Women's HernandezPrecious MD Orders Healthcare- [address], Suite [facility] 20 8 [address] [place] [address] [place] [address] [phone] Allergies Active Allergy Reactions Severity Noted Date Comments Nsaids (Non-Steroidal Anti-Inflammatory Drug) Swelling 05/10/2019 documented as of this encounter (statuses as of 05/11/2019) Medications Medication Sig Dispensed Refills Start Date End Date Status vit Take by mouth. 0 A ctive calc,iron,folic ( VITAMIN ORAL) PNV 421-ryyr-yajtup Take 1 30 capsule 8 05/11/2019 Active [...] & Hernandez, Precious Austin MD Visit Gynecology [address] [place] [address] [address] Crockett [place] [id number] 15 [phone] Health Maintenance Due Date Last Done Comments [...] Dates Phone Address Type TRACIE HODGES II [id number] 2020-Present H MO/PPO/POS documented as of this encounter
--- OUTSIDE RECORDS SUMMARY | 2020-01-22 14:27 | XMS REPORT ---
:1990 Author Organization [facility] t Address [address] [place] [address] [place] [address] Care Team Providers Name Role Phone KEMI GUNN Attending Clinician Unavailable Norman Hernandez MD Attending Clinician 1, Lab Attending Clinician Unavailable KEMI GUNN Admitting Clinician Unavailable Problems This patient has no known problems. Allergies, Adverse Reactions, Alerts This patient has no known allergies or adverse reactions. Medications This patient has no known medications. Procedures This patient has no known procedures. Encounters Start End Encounter Admission Attending Care Care Encounter Source Date/Time Date/Time Type Type Clinicians Facility Department ID 2019-05-25 2019-05-25 Telephone David Precious [facility] [id number] 00:00:00 00:00:00 Cam Óscar [id number] [place] [id number] [facility] [id number] [address] 2019-05-22 2019-05-22 Case Hernandez Precious [facility] [id number] 00:00:00 00:00:00 Management Cam Óscar [id number] [place] [id number] [facility] [phone] [address] 2019-05-16 2019-05-16 Latex Thread Machine Operator 1, Adc Lab [facility] [id number] 11:02:48 11:17:48 Visit Óscar [id number] [place] [id number] [place] [id number] [facility] 2019-05-11 2019-05-11 Telephone Precious Hernandez [facility] [id number] 00:00:00 00:00:00 Norman Cantrell [id number] [place] [id number] Kait [id number] [facility] 134 Building Results Test Description Test Time Test Comments Results Result Sourc e Comments TISSUE EXAM 2019-11-07 Surgical Pathology Report 0 Case: 10:06:00 [id number] Authorizing Provider: Tong Gunn, Collected: 12/01/2019 06:51 AM Ordering Location: [facility] Received: 12/01/2019 07:47 AM [facility] Pathologist: Elise Tran MD Specimen: Placenta PLACENTA, DELIVERY: UMBILICAL CORD THREE-VESSEL CORD WITH A MARGINAL INSERTION MEMBRANES PIGMENT-LADEN MACROPHAGES, CONSISTENT WITH MECONIUM DEPOSITION PLACENTAL DISC OBSERVED WEIGHT OF 512 GM FOCALLY INCREASED SYNCYTIAL KNOTS Signing Pathologist Direct Phone Line: [phone] signed by Elise Tran MD on 12/04/2019 at 10:06 AM/[id number] data: Age 29, race . G1, P0, AB0, weeks 39. Maternal conditions: Suspected maternal infection/fever and chorioamnionitisPlacenta The specimen is received in fixative and is labeled with the patient's name, medical record number and designated as "placenta", is a 512 gm, 17.0 x 17.0 x 4.0 cm (after removal of umbilical cord and membranes) placenta. The membranes are pink-marley to green with meconium present on the surface. Insertion is marginal. The membranes are semi-translucent. The umbilical cord is white-marley to green and is 8.0 cm in length and 1.5 cm in diameter. Insertion is marginal. The cut surface reveals a trivascular cord. The surface is blue-green with slightly dilated vasculature. There is a minimal amount of subchorionic fibrin deposition. The maternal surface is red-brown and spongy with normal cotyledon formation. The cut surface does not reveal any discrete lesions.Section code: A1, umbilical cord and membrane roll; A2-A4, renewals representative sections of placental disc. MG/ewPerformed [facility] Department of Pathology, [address] [place] [address], Uyyxcf [facility], Department of Pathology, [address] [place] [address], [facility], [address] [place] [address], CBC W/PLT COUNT & AUTO DIFFERENTIAL 2019-12-02 04:16:00 Test Item Value Reference Range Interpretation Comme nts WHITE BLOOD CELL COUNT (BEAKER) (test code = 775) 11.1 K/ L 4.0- 10.0 H RED BLOOD CELL COUNT (BEAKER) (test code = 761) 4.13 M/ L 4.00-5 .00 HEMOGLOBIN (BEAKER) (test code = 410) 9.5 GM/DL 12.0-15.5 L HEMATOCRIT (BEAKER) (test code = 411) 29.9 % 36.0-46.0 L MEAN CORPUSCULAR VOLUME (BEAKER) (test code = 753) 72.4 fL 82. 0-99.0 L MEAN CORPUSCULAR HEMOGLOBIN (BEAKER) (test code = 751) 23.0 pg 27.0-33.0 L MEAN CORPUSCULAR HEMOGLOBIN CONC (BEAKER) (test code = 752) 31.8 GM/DL 32.0-36.0 L RED CELL DISTRIBUTION WIDTH (BEAKER) (test code = 412) 17.2 % 12.0-15.0 H PLATELET COUNT (BEAKER) (test code = 756) 172 K/CU MM 150-430 MEAN PLATELET VOLUME (BEAKER) (test code = 754) 10.5 fL 6.0-11 .5 NUCLEATED RED BLOOD CELLS (BEAKER) (test code = 413) 0 /100 WBC 0 -0 NEUTROPHILS RELATIVE PERCENT (BEAKER) (test code = 429) 82 % LYMPHOCYTES RELATIVE PERCENT (BEAKER) (test code = 430) 11 % MONOCYTES RELATIVE PERCENT (BEAKER) (test code = 431) 7 % EOSINOPHILS RELATIVE PERCENT (BEAKER) (test code = 432) 0 % BASOPHILS RELATIVE PERCENT (BEAKER) (test code = 437) 0 % NEUTROPHILS ABSOLUTE COUNT (BEAKER) (test code = 670) 9.06 K/ L 1.80-8.00 H LYMPHOCYTES ABSOLUTE COUNT (BEAKER) (test code = 414) 1.20 K/ L 1.48-4.50 L MONOCYTES ABSOLUTE COUNT (BEAKER) (test code = 415) 0.78 K/ L 0. 00-1.30 EOSINOPHILS ABSOLUTE COUNT (BEAKER) (test code = 416) 0.03 K/ L 0.00-0.50 BASOPHILS ABSOLUTE COUNT (BEAKER) (test code = 417) 0.01 K/ L 0. 00-0.20 IMMATURE GRANULOCYTES-RELATIVE PERCENT (BEAKER) (test code 0 % 0-0 = 2801) [id number] 12:49:00 Test Item Value Reference Range Interpretation Comments RPR SCREEN (BEAKER) (test code = Nonreactive Nonreactive 420) BLOOD GAS, CORD [id number] 06:48:00 Test Item Value Reference Range Interpretation Comments PH CORD VENOUS (BEAKER) (test 7.29 7.32-7.42 L code = 2866) PCO2 CORD VENOUS (BEAKER) (test 44 mmHg 41-51 code = 2867) PO2 CORD VENOUS (BEAKER) (test 27 mmHg 25-40 code = 2868) HCO3 CORD VENOUS (BEAKER) (test 21 mmol/L 21-29 code = 2869) BASE EXCESS CORD VENOUS (BEAKER) -5.9 mmol/L -2.0-3.0 L (test code = 2870) PATIENT TEMPERATURE (BEAKER) 37.0 C (test code = 1818) BLOOD GAS, CORD [id number] 06:48:00 Test Item Value Reference Range Interpretation Comments PH CORD ARTERIAL (BEAKER) (test 7.26 7.15-7.38 code = 2861) PCO2 CORD ARTERIAL (BEAKER) (test 45 mmHg 32-68 code = 2862) PO2 CORD ARTERIAL (BEAKER) (test 32 mmHg 16-20 H code = 2863) HCO3 CORD ARTERIAL (BEAKER) (test 20 mmol/L 15-27 code = 2864) BASE EXCESS CORD ARTERIAL -7.4 mmol/L -8.1-0.9 (BEAKER) (test code = 2865) PATIENT TEMPERATURE (BEAKER) 37.0 C (test code = 1818) HIV-1 ANTIGEN WITH HIV-1/2 [id number] 22:03:00 Test Item Value Reference Range Interpretation Comments HIV-1 ANTIGEN WITH HIV 1\\T\\2 Nonreactive Nonreactive ANTIBODY (2) (BEAKER) (test code = 2586) [employer] Transformer Assembler ID - JBERNHEPATITIS B SURFACE [id number] 22:02:00 Test Item Value Reference Range Interpretation Comments HEPATITIS B SURFACE ANTIGEN (2) Nonreactive Nonreactive (BEAKER) (test code = 2585) [employer] Transformer Assembler ID - JBERNCBC W/PLT COUNT & AUTO [id number] 21:25:00 Test Item Value Reference Range Interpretation Comments WHITE BLOOD CELL COUNT (BEAKER) 7.0 K/ L 4.0-10.0 (test code = 775) RED BLOOD CELL COUNT (BEAKER) 5.34 M/ L 4.00-5.00 H (test code = 761) HEMOGLOBIN (BEAKER) (test code = 12.0 GM/DL 12.0-15.5 410) HEMATOCRIT (BEAKER) (test code = 38.9 % 36.0-46.0 411) MEAN CORPUSCULAR VOLUME (BEAKER) 72.8 fL 82.0-99.0 L (test code = 753) MEAN CORPUSCULAR HEMOGLOBIN 22.5 pg 27.0-33.0 L (BEAKER) (test code = 751) MEAN CORPUSCULAR HEMOGLOBIN CONC 30.8 GM/DL 32.0-36.0 L (BEAKER) (test code = 752) RED CELL DISTRIBUTION WIDTH 17.3 % 12.0-15.0 H (BEAKER) (test code = 412) PLATELET COUNT (BEAKER) (test 246 K/CU MM 150-430 code = 756) MEAN PLATELET VOLUME (BEAKER) 11.7 fL 6.0-11.5 H (test code = 754) NUCLEATED RED BLOOD CELLS 0 /100 WBC 0-0 (BEAKER) (test code = 413) NEUTROPHILS RELATIVE PERCENT 77 % (BEAKER) (test code = 429) LYMPHOCYTES RELATIVE PERCENT 16 % (BEAKER) (test code = 430) MONOCYTES RELATIVE PERCENT 7 % (BEAKER) (test code = 431) EOSINOPHILS RELATIVE PERCENT 0 % (BEAKER) (test code = 432) BASOPHILS RELATIVE PERCENT 0 % (BEAKER) (test code = 437) NEUTROPHILS ABSOLUTE COUNT 5.38 K/ L 1.80-8.00 (BEAKER) (test code = 670) LYMPHOCYTES ABSOLUTE COUNT 1.15 K/ L 1.48-4.50 L (BEAKER) (test code = 414) MONOCYTES ABSOLUTE COUNT (BEAKER) 0.46 K/ L 0.00-1.30 (test code = 415) EOSINOPHILS ABSOLUTE COUNT 0.02 K/ L 0.00-0.50 (BEAKER) (test code = 416) BASOPHILS ABSOLUTE COUNT (BEAKER) 0.01 K/ L 0.00-0.20 (test code = 417) IMMATURE GRANULOCYTES-RELATIVE 0 % 0-0 PERCENT (BEAKER) (test code = 2801)
--- OUTSIDE RECORDS SUMMARY | 2020-01-22 14:28 | XMS REPORT | Summary of Care ---
:1990 Author Organization [facility] [employer] [facility] Address [address] [place] [address] Care Team Providers Name Role Phone Pcp, Patient Does Not Have A Primary Care Provider +1-000-00 0-0000 Reason for Visit Reason Comments Assessment rash / hives medication ques tion Encounter Details Date Type Department Care Team Description 05/25/2019 Telephone [facility] Women's HernandezPrecious MD Assessment (rash / Healthcare- [address] hives medication [address] [place] [address], DR. gallardo ) [address] [address] [phone] Allergies Active Allergy Reactions Severity Noted Date Comments Nsaids (Non-Steroidal Anti-Inflammatory Drug) Swelling 05/10/2019 documented as of this encounter (statuses as of 05/25/2019) Medications Medication Sig Dispensed Refills Start Date End Date Status vit Take by mouth. 0 A ctive calc,iron,folic ( VITAMIN ORAL) PNV [id number]-ewel-khthcw Take 1 30 capsule 8 05/11/2019 Active 1-dss-dha (VITAFOL FE+, TAB-CAP/M2 by WITH DOCUSATE,) 90 mg mouth daily. iron-1 mg -50 mg-200 mg CapIndications: Supervision of high-risk with history of in first trimester documented as of this encounter (statuses as of 05/25/2019) Active Problems Estimated Date of Delivery Comments Yes 12/12/2019 Based on Ultrasound No additional problems on filedocumented as of this encounter (statuses as of 05/25/2019) Social History Tobacco Use Types Packs/Day Years [...] Treatment Date Type Specialty Care Team Description 06/08/2019 Routine Obstetrics & [place], [place] MD Visit Gynecology [address] [place] [phone] Health Maintenance Due Date Last Done Comments DTaP,Tdap,and Td Vaccines (1 - 02/10/2007 Tdap) INFLUENZA VACCINE (#1) 2019 PAP SMEAR 05/10/2022 05/10/2019 PNEUMOCOCCAL 0-64 YEARS COMBINED Aged Out No longer eligible based on SERIES patient's age to complete this topic documented as of this encounter Results Not on filedocumented in this encounter Insurance Payer Benefit Plan / Group Subscriber ID Effective Dates Phone Address Type TRACIE HODGES II [id number] 2018-Present H MO/PPO/POS documented as of this encounter
--- OUTSIDE RECORDS SUMMARY | 2020-01-22 14:28 | XMS REPORT | Summary of Care ---
:1990 Author Organization [facility] Address [address] [place] [address] Care Team Providers Name Role Phone Pcp, Patient Does Not Have A Primary Care Provider +1-000-00 0-0000 Reason for Visit Reason Comments LAB WORK Auth/Cert Status Reason Specialty Diagnoses / Referred By Referred To Procedures Contact Contact Clinical Medical Diagnoses Supervision of high-risk with history of in first trimester [facility] Lab Laboratory Procedures GLUCOSE, 1 HOUR [address] [place] [address] Encounter Details Date Type Department Care Team Description 05/16/2019 Wind Tunnel Mechanic Visit [facility] HernandezPrecious MD [address] Machado [address] [place] [address] Supervision of Phlebotomy 1, [facility] Lab high-risk [place] with history of [address] [place] trimester [address] Allergies Active Allergy Reactions Severity Noted Date Comments Nsaids (Non-Steroidal Anti-Inflammatory Drug) Swelling 05/10/2019 documented as of this encounter (statuses as of 05/17/2019) Medications Medication Sig Dispensed Refills Start Date End Date Status vit Take by mouth. 0 A ctive calc,iron,folic ( VITAMIN ORAL) PNV [id number] Take 1 30 capsule 8 05/11/2019 Active 1-dss-dha (VITAFOL FE+, TAB-CAP/M2 by WITH DOCUSATE,) 90 mg mouth daily. iron-1 mg -50 mg-200 mg CapIndications: Supervision of high-risk with history of in first trimester documented as of this encounter (statuses as of 05/17/2019) Active Problems Estimated Date of Delivery Comments Yes 12/12/2019 Based on Ultrasound No additional problems on filedocumented as of this encounter (statuses as of 05/17/2019) Social History Tobacco Use Types Packs/Day Years [...] Treatment Date Type Specialty Care Team Description 06/07/2019 Routine Obstetrics & Hernandez, Precious Austin MD Visit Gynecology [address] [place] [address] DR. Crockett [place] [address] [phone] Name Type Priority Associated Diagnoses Date/Ti me RUBELLA SCREEN IGG LAB Routine Supervision of high-ri sk 05/16/2019 12:25 PM CDT with history of in first trimester VZV ANTIBODY SCREEN LAB Routine Supervision of high-r isk 05/16/2019 12:25 PM CDT with history of in first trimester URINE CULTURE LAB Routine Supervision of high-risk 12:29 PM CDT with history of in first trimester Health Maintenance Due Date [...] Name Priority Date/Time Associated Diagnosis Comme nts CBC WITH DIFFERENTIAL Routine 05/16/2019 12:25 Supervision of Results for this PM CDT high-risk procedur e are in with history of the results in first section. trimester ADC, CLC OR LCC ONLY Routine 05/16/2019 12:25 Supervision of R esults for this - HIV TYPE 1 AND 2 PM CDT high-risk pr ocedure are in ANTIBODY SCREEN WITH with history of the results P24 in first section. trimester ADC OR SALLY ONLY - Routine 05/16/2019 12:25 Supervision of Results for this RPR PM CDT high-risk procedur e are in with history of the results in first section. trimester WORKUP, Routine 05/16/2019 12:25 Supervision of Resul ts for this BLOOD BANK PM CDT high-risk procedur e are in with history of the results in first section. trimester HCV ANTIBODY Routine 05/16/2019 12:25 Supervision of Results f or this PM CDT high-risk procedur e are in with history of the results in first section. trimester HEPATITIS B SURFACE Routine 05/16/2019 12:25 Supervision of Re sults for this ANTIGEN PM CDT high-risk procedur e are in with history of the results in first section. trimester CBC WITH DIFF Routine 05/16/2019 12:25 Supervision of Results for this PM CDT high-risk procedur e are in with history of the results in first section. trimester GLUCOSE 1 HOUR POST Routine 05/16/2019 12:25 Supervision of Re sults for this PRANDIAL PM CDT high-risk procedur e are in with history of the results in first section. trimester documented in this encounter Results CBC WITH DIFFERENTIAL (05/16/2019 12:25 PM CDT) Pathologist Sig nature WBC 5.91 4.30 - 11.10 [facility] 10*3/L [facility]ITAL [facility] RBC 5.50 (H) 3.93 - 5.25 [facility] 10*6/L H[facility]ITAL [facility] HGB 11.9 11.6 - 15.0 [facility] g/dL [facility] HCT 39.9 35.7 - 45.2 % [facility] MCV 72.5 (L) 80.6 - 95.5 fL [facility] MCH 21.6 (L) 25.9 - 32.8 pg [facility] MCHC 29.8 (L) 31.6 - 35.1 [facility] g/dL [facility] RDW-SD 41.4 39.0 - 49.9 fL [facility] RDW-CV 16.7 (H) 12.0 - 15.5 % [facility] PLT 254 166 - 358 [facility] 10*3/L H[facility]ITAL [facility] MPV 11.2 9.5 - 12.9 fL [facility] NRBC/100 WBC 0.0 0.0 - 10.0 /100 [facility] WBCs [facility] NRBC x10^3 <0.01 10*3/L [facility] GRAN MAT (NEUT) % 62.5 % [facility] IMM GRAN % 0.30 % [facility] LYMPH % 28.4 % [facility] MONO % 6.6 % [facility] EOS % 1.7 % [facility] BASO % 0.5 % [facility] GRAN MAT x10^3(ANC) 3.69 1.88 - 7.09 [facility] 10*3/uL [facility] IMM GRAN x10^3 <0.03 0.00 - 0.06 [facility] 10*3/uL HOSPITAL LAB[facility]ORY LYMPH x10^3 1.68 1.32 - 3.29 [facility] 10*3/uL [facility]ITAL [facility] MONO x10^3 0.39 0.33 - 0.92 [facility] 10*3/uL H[facility]ITAL [facility] EOS x10^3 0.10 0.03 - 0.39 [facility] 10*3/uL [facility] BASO x10^3 0.03 0.01 - 0.07 [facility] 10*3/uL [facility] Specimen Blood - ARM, RIGHT Performing Organization Address [facility] Phone Number [facility] CLIA: [id number], [address] [place] [address] GLUCOSE 1 HOUR POST PRANDIAL (05/16/2019 12:25 PM CDT) Pathologist Sig nature GLUC 1 HR 81 (L) 120 - 170 mg/dL [facility]OR[facility] Specimen Blood - ARM, RIGHT Performing Organization Address [facility] Phone Number [facility] CLIA: [id number], [address] [place] [address] HEPATITIS B SURFACE ANTIGEN (05/16/2019 12:25 PM CDT) HBsAg HEPATITIS B Negative [facility] LABORATORY SURFACE ANTIGEN SERVICES NEGATIVE HBsAg 0.06 [facility] LABORATORY Semi-Quantitative SERVICES Specimen Blood - ARM, RIGHT Performing Organization Address City/State/Zipcode Phone Number [facility] LABORATORY SERVICES CLIA: [id number], [address] [place], [place] [address] [facility] HCV ANTIBODY (05/16/2019 12:25 PM CDT) Pathologist Sig nature HCV Ab NEGATIVE [facility] LABORATORY SERVICES HCV Semi-Quantitative 0.04 [facility] LABORATORY SERVICES Specimen Blood - ARM, RIGHT Performing Organization Address City/[facility] Phone Number [facility] LABORATORY SERVICES CLIA: [id number], [address] [place], [place] [address] [facility] ADC, CLC OR LCC ONLY - HIV TYPE 1 AND 2 ANTIBODY SCREEN WITH P24 (05/16/2019 12:25 PM CDT) Pathologist Sig [facility] HIV 1/2 AG/AB NON-REACTIVE Nonreactive [facility] LABORATORY Specimen Blood - ARM, RIGHT Performing Organization Address [facility] Phone Number [facility] CLIA: [id number], [address] [place] [address] [address] [facility] ADC OR SALLY ONLY - RPR (05/16/2019 12:25 PM CDT) Pathologist Sig [facility] RPR (Qualitative) NON-REACTIVE Nonreactive [facility] LABORATORY Specimen Blood - ARM, RIGHT Performing Organization Address [facility] Phone Number [facility] CLIA: [id number], [address] [place] [address] [facility] WORKUP, BLOOD BANK (05/16/2019 12:25 PM CDT) Pathologist Sig nature ABO & RH B Positive LAB Comment: Performed at [facility] Laboratory Services - [facility] Blood Bank [address] [place] [address] Toll Free: [phone] CLIA No. [id number] IAT Negative LAB Comment: Performed at [facility] Laboratory Services - [facility] Blood Bank [address] [place] [address] Toll Free: [phone] CLIA No. [id number] Specimen Blood - [facility] Performing Organization Address City/[facility]/Zipcode Phone Number [facility] LAB documented in this encounter Visit Diagnoses Diagnosis Supervision of high-risk with history of in first trimester documented in this encounter Guarantor Name Account Type Relation to Date of Phone Bill ing Patient Address Tequila Friedman Personal/Family Self 1990 [address] (Home) [address] [place] [address] documented as of this encounter
--- OUTSIDE RECORDS SUMMARY | 2020-01-22 14:28 | XMS REPORT | Summary of Care ---
:1990 Author Organization [facility] Address [address] [place] [address] Care Team Providers Name Role Phone Pcp, Patient Does Not Have A Primary Care Provider +1-000-00 0-0000 Reason for Visit Reason Comments Orders Encounter Details Date Type Department Care Team Description 05/11/2019 Telephone [facility] Women's HernandezPrecious MD Orders Healthcare- [address], Suite [facility] 20 8 [address] [place] [address] [place] [address] [phone] Allergies Active Allergy Reactions Severity Noted Date Comments Nsaids (Non-Steroidal Anti-Inflammatory Drug) Swelling 05/10/2019 documented as of this encounter (statuses as of 05/11/2019) Medications Medication Sig Dispensed Refills Start Date End Date Status vit Take by mouth. 0 A ctive calc,iron,folic ( VITAMIN ORAL) PNV [id number] Take 1 30 capsule 8 05/11/2019 Active [...] & Hernandez, Precious Austin MD Visit Gynecology [address] [place] [address] DR. Crockett [place] [address] 15 [phone] Health Maintenance Due Date Last Done Comments [...] Dates Phone Address Type TRACIE HODGES II [id number] 2018-Present H MO/PPO/POS documented as of this encounter
--- OUTSIDE RECORDS SUMMARY | 2020-01-22 14:28 | XMS REPORT | Summary of Care ---
:1990 Author Organization [facility] [employer] [facility] Address [address] [place] [address] Care Team Providers Name Role Phone Pcp, Patient Does Not Have A Primary Care Provider +1-000-00 0-0000 Reason for Visit Reason Comments Orders Encounter Details Date Type Department Care Team Description 05/11/2019 Telephone [facility] Women's HernandezPrecious MD Orders Healthcare- [address], Suite [facility] 20 8 [address] [place] [address] [place] [address] [phone] Allergies Active Allergy Reactions Severity Noted Date Comments Nsaids (Non-Steroidal Anti-Inflammatory Drug) Swelling 05/10/2019 documented as of this encounter (statuses as of 05/15/2019) Medications Medication Sig Dispensed Refills Start Date End Date Status vit Take by mouth. 0 A ctive calc,iron,folic ( VITAMIN ORAL) PNV [id number] Take 1 30 capsule 8 05/11/2019 Active 1-dss-dha (VITAFOL FE+, TAB-CAP/M2 by WITH DOCUSATE,) 90 mg mouth daily. iron-1 mg -50 mg-200 mg CapIndications: Supervision of high-risk with history of in first trimester documented as of this encounter (statuses as of 05/15/2019) Active Problems Estimated Date of Delivery Comments Yes 12/12/2019 Based on Ultrasound No additional problems on filedocumented as of this encounter (statuses as of 05/15/2019) Social History Tobacco Use Types Packs/Day Years [...] & Hernandez, Precious Austin MD Visit Gynecology [address] [place] [address] [address]. Crockett [place] [address] 15 [phone] Health Maintenance Due Date Last Done Comments [...] Dates Phone Address Type TRACIE HODGES II [id number] 2018-Present H MO/PPO/POS documented as of this encounter
--- OUTSIDE RECORDS SUMMARY | 2020-01-22 14:28 | XMS REPORT | Summary of Care ---
:1990 Author Organization [facility] Address [address] [place] [address] Care Team Providers Name Role Phone Pcp, Patient Does Not Have A Primary Care Provider +1-000-00 0-0000 Reason for Visit Reason Comments Lab Results Encounter Details Date Type Department Care Team Description 05/22/2019 Case Management [facility] Women's HernandezPrecious MD Lab Results Healthcare- [address] [place] [address] [address] [address] [phone] Allergies Active Allergy Reactions Severity Noted Date Comments Nsaids (Non-Steroidal Anti-Inflammatory Drug) Swelling 05/10/2019 documented as of this encounter (statuses as of 05/22/2019) Medications Medication Sig Dispensed Refills Start Date End Date Status vit Take by mouth. 0 A ctive calc,iron,folic ( VITAMIN ORAL) PNV [id number] Take 1 30 capsule 8 05/11/2019 Active 1-dss-dha (VITAFOL FE+, TAB-CAP/M2 by WITH DOCUSATE,) 90 mg mouth daily. iron-1 mg -50 mg-200 mg CapIndications: Supervision of high-risk with history of in first trimester documented as of this encounter (statuses as of 05/22/2019) Active Problems Estimated Date of Delivery Comments Yes 12/12/2019 Based on Ultrasound No additional problems on filedocumented as of this encounter (statuses as of 05/22/2019) Social History Tobacco Use Types Packs/Day Years [...] & Hernandez, Precious Austin MD Visit Gynecology [address] [place] [address] [address] [place] [address] 15 [phone] Health Maintenance Due Date Last Done Comments [...] Dates Phone Address Type TRACIE HODGES II [id number] 2018-Present H MO/PPO/POS documented as of this encounter
[2020-01-22] MEDS ORDERED: NA CHLORIDE 0.9% 1,000 ML ONE (15:38)
[2020-01-22] MEDS ORDERED: ACETAMINOPHEN 500 MG TAB ONE (15:38)
--- NOTE | 2020-01-22 16:08 | RAD REPORT ---
EXAM DESCRIPTION: RAD - Chest Single View - 01/22/2020 3:51 pm CLINICAL HISTORY: FEVER Chest pain. COMPARISON: Chest Pa And Lat (2 Views) dated 05/31/2017 FINDINGS: Portable technique limits examination quality. The lungs are grossly clear. The heart is normal in size. No displaced fractures. IMPRESSION: No acute intrathoracic process suspected.
[2020-01-22 16:16] LABS: Absolute Lymphocytes (CBC) 0.8 K/uL (0.7-4.9); Basophils % 0.2 % (0-1.3); Lymphocytes % 7.5 % (15.3-44.8)
[2020-01-22 16:32] LABS: Albumin 4.3 g/dL (3.4-5.0); Bilirubin Total 0.6 mg/dL (0.2-1.0); Potassium 3.5 mmol/L (3.5-5.1); Protein, Total 8.3 g/dL (6.4-8.2)
[2020-01-22 17:48] LABS: Platelet Estimate ADEQ; Urine White Blood Cell Casts OK
[2020-01-22 17:49] LABS: Anisocytosis 1+; Blood Morphology Comment NOTED (NOT SEEN); Poikilocytosis 1+
[2020-01-22 19:33] LABS: Urine Bacteria <20 /HPF (<20); Urine Culture Reflex Order NOT NEEDED; Urine RBC 20-50 /HPF (NONE SEEN)
[2020-01-22 19:35] LABS: Specific Gravity 1.015 (1.005-1.030)
--- NOTE | 2020-01-22 19:37 | EDPHYS ---
Physician Documentation [facility] Name: Tequila Friedman Age: 29 yrs Sex: Female : 1990 Arrival Date: 01/22/2020 Time: 14:33 Bed 20 Private MD: ED Physician Cj Fish HPI: 01/21 16:35 This 29 yrs old Female presents to ER via Ambulatory with complaints of Fever. pm1 16:35 The patient reports fever, that was measured at 101.6 degrees Fahrenheit. Onset: The pm1 symptoms/episode began/occurred this morning, at 05:00. 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 Associated signs and symptoms: Pertinent positives: Breast tenderness - left, that improved with breast feeding, Pertinent negatives: abdominal pain, backache, cough, diarrhea, nausea, vomiting, pelvic pain, vaginal discharge or bleeding, urinary symptoms. Severity of symptoms: in the emergency department the symptoms have improved. The patient has not experienced similar symptoms in the past. 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 Patient already had her menstrual cycle without any issues. Her child is 7 weeks old. 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 - Social history:: Smoking status: Patient denies any tobacco usage or history of. ROS: 16:35 Eyes: Negative for injury, pain, redness, and discharge, ENT: Negative for injury, pm1 pain, and discharge, Neck: Negative for injury, pain, and swelling, Respiratory: Negative for shortness of breath, cough, wheezing, and pleuritic chest pain, Abdomen/GI: Negative for abdominal pain, nausea, vomiting, diarrhea, and constipation. 16:35 Back: Negative for injury and pain, : Negative for injury, bleeding, discharge, and swelling, MS/Extremity: Negative for injury and deformity, Skin: Negative for injury, rash, and discoloration, Neuro: Negative for headache, weakness, numbness, tingling, and seizure. 16:35 Constitutional: Positive for body aches, fever, Negative for poor PO intake. 16:35 Cardiovascular: Positive for Left breast pain, Negative for edema, palpitations. Exam: 16:35 Constitutional: This is a well developed, well nourished patient who is awake, alert, pm1 and in no acute distress. Head/Face: Normocephalic, atraumatic. Neck: Trachea midline, no thyromegaly or masses palpated, and no cervical lymphadenopathy. Supple, full range of motion without nuchal rigidity, or vertebral point tenderness. No Meningismus. 16:35 Cardiovascular: Regular rate and rhythm with a normal S1 and S2. No gallops, murmurs, or rubs. Normal PMI, no JVD. No pulse deficits. Respiratory: Lungs have equal breath sounds bilaterally, clear to auscultation and percussion. No rales, rhonchi or wheezes noted. No increased work of breathing, no retractions or nasal flaring. Abdomen/GI: Soft, non-tender, with normal bowel sounds. No distension or tympany. No guarding or rebound. No evidence of tenderness throughout. Back: No spinal tenderness. No costovertebral tenderness. Full range of motion. Skin: Warm, dry with normal turgor. Normal color with no rashes, no lesions, and no evidence of cellulitis. MS/ Extremity: Pulses equal, no cyanosis. Neurovascular intact. Full, normal range of motion. 16:35 Chest/axilla: Breasts: abscess, not appreciated, in both breasts, cellulitis, is not appreciated, in both breasts, tenderness, tenderness and engorgement of ducts at 9 to 11 o'clock of left breast, [facility] present for examination. 16:35 Neuro: Exam negative for acute changes, Orientation: is normal, Mentation: is normal, Motor: is normal, moves all fours. Vital Signs: 14:54 BP 131 / 97; Pulse 98; Resp 16; Temp 98.7; Pulse Ox 99% ; Weight 62.6 kg; Height 5 ft. sv 4 in. (162.56 cm); 16:17 BP 132 / 93; Pulse 113; Resp 17; Pulse Ox 100% on R/A; tw2 17:19 BP 123 / 89; Pulse 92; Resp 17; Pulse Ox 98% on R/A; tw2 18:26 BP 122 / 83; Pulse 92; Resp 17; Pulse Ox 99% on R/A; tw2 19:27 BP 122 / 80; Pulse 83; Resp 18; Temp 98.9; Pulse Ox 100% ; Pain 5/10; bb3 19:48 Temp 98.9; bb3 20:19 BP 132 / 86; Pulse 83; Resp 16; Pulse Ox 100% ; bb3 14:54 Body Mass Index 23.69 (62.60 kg, 162.56 cm) sv MDM: 15:22 Patient medically screened. pm1 19:35 Data reviewed: vital signs. Data interpreted: Pulse oximetry: on room air is 100 %. pm1 Interpretation: normal. Counseling: I had a detailed discussion with the patient and/or guardian regarding: the historical points, exam findings, and any diagnostic results supporting the discharge/admit diagnosis, lab results, radiology results, the need for outpatient follow up, to return to the emergency department if symptoms worsen or persist or if there are any questions or concerns that arise at home. 01/21 15:24 Order name: Flu pm01/21 15:24 Order name: Strep; Complete Time: 16:24 pm01/21 15:24 Order name: CBC with Diff; Complete Time: 17:49 pm01/21 15:24 Order name: CMP; Complete Time: 16:29 pm01/21 15:24 Order name: Urine Microscopic Only; Complete Time: 19:35 pm01/21 15:24 Order name: CXR XRAY; Complete Time: 16:11 pm01/21 15:25 Order name: Influenza Screen (A ; Complete Time: 16:41 EDMT 01/21 15:29 Order name: COVID-19 pm01/21 16:23 Order name: Throat Culture EDMT 01/21 16:23 Order name: CBC Smear Scan; Complete Time: 17:49 EDMT 01/21 19:35 Order name: Test, Urine; Complete Time: 19:35 EDMT 01/21 15:24 Order name: Labs collected and sent; Complete Time: 19:20 pm01/21 15:24 Order name: O2 Per Protocol; Complete Time: 15:29 pm01/21 15:29 Order name: IV; Complete Time: 16:12 tw2 Administered Medications: 15:55 Drug: Tylenol 1000 mg Route: PO; tw2 19:48 Follow up: Temp 98.9 bb3 15:55 Drug: NS 0.9% 1000 ml Route: IV; Rate: 1000 ml; Site: left antecubital; tw2 16:55 Follow up: Response: No adverse reaction; IV Status: Completed infusion; IV Intake: tw2 1000ml Disposition: 01/22/20 19:37 Discharged to Home. Impression: Mastitis - Left breast. - Condition is Stable. - Discharge Instructions: Mastitis, and Mastitis. - Prescriptions for Dicloxacillin 500 mg Oral Capsule - take 1 capsule by ORAL route every 6 hours for 10 days; 40 capsule. - Medication Reconciliation Form, Thank You Letter, Antibiotic Education, Prescription Opioid Use form. - SBAR form (01/23/20 09:03). hb - Follow up: Emergency Department; When: As needed; Reason: Worsening of condition. Follow up: Private Physician; When: 2 - 3 days; Reason: Recheck today's complaints, Continuance of care, Re-evaluation by your physician. - Problem is new. - Symptoms have improved. Addendum: 01/29/2020 07:09 Co-signature as Attending Physician, Cj Fish MD. r n Signatures: Dispatcher [employer] Diana Dc RN RN sv Nieto, Roman, MD MD rn Marinas, Patrick, MITUL FIELD MERCHANDISER pm1 Monika Pittman RN RN tw2 Elaine Bonds bb3 Za Sher RN Corrections: (The following items were deleted from the chart) 01/21 19: 15:24 Urine Dipstick-Ancillary ordered. pm1 tw2 19:19 15:24 Urine Test ordered. pm1 tw2 20:25 19:37 01/22/2020 19:37 Discharged to Home. Impression: Mastitis - Left breast. bb3 Condition is Stable. Discharge Instructions: Mastitis, and Mastitis. Prescriptions for Dicloxacillin 500 mg Oral Capsule - take 1 capsule by ORAL route every 6 hours for 10 days; 40 capsule. and Forms are Medication Reconciliation Form, Thank You Letter, Antibiotic Education, Prescription Opioid Use. Follow up: Emergency Department; When: As needed; Reason: Worsening of condition. Follow up: Private Physician; When: 2 - 3 days; Reason: Recheck today's complaints, Continuance of care, Re-evaluation by your physician. Problem is new. Symptoms have improved. pm1 20:34 16:35 Associated signs and symptoms: Pertinent positives: Breast tenderness - right, pm1 that improved with breast feeding, Pertinent negatives: abdominal pain, backache, cough, diarrhea, nausea, vomiting, pelvic pain, vaginal discharge or bleeding, urinary symptoms, pm1 20:35 16:35 Cardiovascular: Positive for Right breast pain, Negative for edema, palpitations, pm1 pm1
--- NOTE | 2020-01-22 19:37 | ER ---
Nurse's Notes [facility] Name: Tequila Friedman Age: 29 yrs Sex: Female : 1990 Arrival Date: 01/22/2020 Time: 14:33 Bed 20 Private MD: Diagnosis: Mastitis - Left breast Presentation: 01/21 14:53 Chief complaint: Patient states: fever started today around 0500 Tmax 101.6. Pt sv recently had a vaginal delivery. c/o chills, breast tenderness. Coronavirus screen: Surgical mask placed on patient. Patient moved to private room, placed in contact and droplet isolation with eye protection until further assessment. Patient denies a cough. Patient denies shortness of breath or difficulty breathing. Patient denies measured and/or subjective temperature greater than 100.4F prior to today's visit. Patient denies travel on a cruise ship or to a country the [facility] currently lists as an affected area. Patient denies contact with known and/or suspected case of COVID-19. Her spouse has been in contact with a +COVID pt (he is a RN). He has been getting food from his spouse but isolating himself in a hotel. Ebola Screen: No symptoms or risks identified at this time. Risk Assessment: Do you want to hurt yourself or someone else? Patient reports no desire to harm self or others. Onset of symptoms was January 22, 2020. 14:53 Method Of Arrival: Ambulatory sv 14:53 Acuity: NICHELLE 3 sv 14:54 Initial Sepsis Screen: Does the patient meet any 2 criteria? HR > 90 bpm. No. Patient's sv initial sepsis screen is negative. Does the patient have a suspected source of infection? No. Patient's initial sepsis screen is negative. Triage Assessment: 14:57 General: Appears in no apparent distress. comfortable, Behavior is calm, cooperative, sv appropriate for age. General: Reports fever for 0-12 hours. Pain: Denies pain. Neuro: Level of Consciousness is awake, alert, obeys commands, Gait is steady. Respiratory: Respiratory effort is. 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 - Social history:: Smoking status: Patient denies any tobacco usage or history of. Screenin:06 Abuse screen: Denies threats or abuse. Nutritional screening: No deficits noted. tw2 Tuberculosis screening: No symptoms or risk factors identified. Fall Risk None identified. Assessment: 15:10 Reassessment: provider at bedside at this time in full PPE per protocols. tw2 16:00 General: Appears in no apparent distress. slender, well groomed, Behavior is calm, tw2 cooperative, appropriate for age. Pain: Complains of pain in left breast. Neuro: Level of Consciousness is awake, alert, obeys commands, Oriented to person, place, time, situation. Cardiovascular: Heart tones S1 S2 Patient's skin is warm and dry. Respiratory: Airway is patent Respiratory effort is even, unlabored, Respiratory pattern is regular, symmetrical, Breath sounds are clear bilaterally. GI: No signs and/or symptoms were reported involving the gastrointestinal system. Abdomen is flat, Bowel sounds present X 4 quads. : No signs and/or symptoms were reported regarding the genitourinary system. EENT: No signs and/or symptoms were reported regarding the EENT system. Derm: Reports increased redness and swelling noted on left breast. Musculoskeletal: Range of motion: intact in all extremities. 17:19 Reassessment: Patient appears in no apparent distress at this time. No changes from tw2 previously documented assessment. Patient and/or family updated on plan of care and expected duration. Pain level reassessed. Patient is alert, oriented x 3, equal unlabored respirations, skin warm/dry/pink. 18:26 Reassessment: Patient appears in no apparent distress at this time. No changes from tw2 previously documented assessment. Patient and/or family updated on plan of care and expected duration. Pain level reassessed. Patient is alert, oriented x 3, equal unlabored respirations, skin warm/dry/pink. 19:29 Reassessment: Patient and/or family updated on plan of care and expected duration. Pain bb3 level reassessed. Patient is alert, oriented x 3, equal unlabored respirations, skin warm/dry/pink. General: Appears in no apparent distress. comfortable. Pain: Complains of pain in left nipple Pain does not radiate. Pain Quality of pain is described as aching. 20:21 Reassessment: Patient appears in no apparent distress at this time. No changes from bb3 previously documented assessment. Patient and/or family updated on plan of care and expected duration. Pain level reassessed. Patient is alert, oriented x 3, equal unlabored respirations, skin warm/dry/pink. 01/22 11:01 Reassessment: CARMELA #[id number]. hb Vital Signs: 01/21 14:54 BP 131 / 97; Pulse 98; Resp 16; Temp 98.7; Pulse Ox 99% ; Weight 62.6 kg; Height 5 ft. sv 4 in. (162.56 cm); 16:17 BP 132 / 93; Pulse 113; Resp 17; Pulse Ox 100% on R/A; tw2 17:19 BP 123 / 89; Pulse 92; Resp 17; Pulse Ox 98% on R/A; tw2 18:26 BP 122 / 83; Pulse 92; Resp 17; Pulse Ox 99% on R/A; tw2 19:27 BP 122 / 80; Pulse 83; Resp 18; Temp 98.9; Pulse Ox 100% ; Pain 5/10; bb3 19:48 Temp 98.9; bb3 20:19 BP 132 / 86; Pulse 83; Resp 16; Pulse Ox 100% ; bb3 14:54 Body Mass Index 23.69 (62.60 kg, 162.56 cm) sv ED Course: 14:33 Patient arrived in ED. mr 14:54 Triage completed. sv 14:55 Arm band placed on. sv 15:00 Bed in low position. Call light in reach. Pulse ox on. NIBP on. tw2 15:01 Monika Pittman RN is Primary Nurse. tw2 15:03 Deon Agarwal NP is PHCP. pm1 15:03 Cj Fish MD is Attending Physician. pm1 15:12 served as transportation analyst for breast examination. tw2 15:55 CXR XRAY In Process Unspecified. EDMS 15:55 Inserted saline lock: 22 gauge in left antecubital area, using aseptic technique. Blood tw2 collected. 16:13 COVID-19 Sent. tw2 16:13 CBC with Diff Sent. tw2 16:13 CMP Sent. tw2 16:13 Influenza Screen (A Sent. tw2 19:11 Report given to SOBIA Henry. tw2 Administered Medications: 15:55 Drug: Tylenol 1000 mg Route: PO; tw2 19:48 Follow up: Temp 98.9 bb3 15:55 Drug: NS 0.9% 1000 ml Route: IV; Rate: 1000 ml; Site: left antecubital; tw2 16:55 Follow up: Response: No adverse reaction; IV Status: Completed infusion; IV Intake: tw2 1000ml Intake: 16:55 IV: 1000ml; Total: 1000ml. tw2 Outcome: 19:37 Discharge ordered by MD. pm1 20:24 Discharged to home ambulatory. bb3 20:24 Condition: improved 20:24 Discharge instructions given to patient, Instructed on discharge instructions, follow up and referral plans. medication usage, Demonstrated understanding of Prescriptions given X 1. 20:25 Patient left the ED. bb3 Addendum: 01/26/2020 09:46 Addendum: Other pt notified of negative COVID-19 swab results. d m5 Signatures: Dispatcher [employer] EDMS Nancy Ferrari RN RN dm5 Diana Gaspar RN Hayley Cruz Patrick, INTERNAL COMBUSTION ENGINE INSPECTOR INTERNAL COMBUSTION ENGINE INSPECTOR pm1 Za Sher RN RN hb Wise, Tara, RN RN tw2 Elaine Bonds bb3 Corrections: (The following items were deleted from the chart) 01/21 14:56 14:53 Coronavirus screen: Surgical mask placed on patient. Patient moved to private room, placed in contact and droplet isolation with eye protection until further assessment. Patient denies a cough. Patient denies shortness of breath or difficulty breathing. Patient denies measured and/or subjective temperature greater than 100.4F prior to today's visit. Patient denies travel on a cruise ship or to a country the [facility] currently lists as an affected area. Patient reports contact with known and/or suspected case of COVID-19. 14:56 14:54 Initial Sepsis Screen: Does the patient meet any 2 criteria? No. Patient's sv initial sepsis screen is negative. Does the patient have a suspected source of infection? No. Patient's initial sepsis screen is negative. 14:56 14:54 Resp 16bpm; Temp 98.7F; 62.6 kg; Height 5 ft. 4 in.; BMI: 23.6; [facility]
[2020-01-22 21:16] VITALS: TEMP 98.9; O2SAT 100
[2020-01-22 21:19] VITALS: BP 132/86
== END 2020-01-22 20:25 | disposition home or self-care (01) ==
LOC: ER 14:22
DX: N61.0 Mastitis without abscess (principal); Z20.828 Contact with and (suspected) exposure to other viral communicable diseases
CPT/HCPCS: 87070; 85025; 36415; 81025; 87081; 81015; 80053; 87804 ×2; 71045; 96360; 99284; U0002; J7030